=== PATIENT | female | born 1950 | race Caucasian/White ===

== ENCOUNTER → 2017-10-09 16:49 | Outpatient (CLI) | payer MEDICARE | END | disposition home or self-care (01) | LOC: D.MAMMO 14:30 | DX: N63.11 Unspecified lump in the right breast, upper outer quadrant (principal) ==

== ENCOUNTER → 2017-11-13 09:07 | Outpatient (CLI) | payer MEDICARE, OTHER ==
[~2017-11-13 09:07] MED LIST: HYDROCODONE-APA1 TAB PO
[2017-12-17 07:28] VITALS: BMI 33.1
== END | disposition home or self-care (01) ==
LOC: D.US 09:07
DX: N63.11 Unspecified lump in the right breast, upper outer quadrant (principal)

== ENCOUNTER 2017-11-28 06:10 | Day surgery (SDC) | payer MEDICARE, OTHER ==
[2017-11-28] VITALS (8 sets, daily range): BP systolic 104–152; BP diastolic 38–69; Ht 154.9 cm; Wt 79.5 kg
[~2017-11-28] VITALS: Ht 154.9 cm; Wt 79.5 kg
--- NOTE | ~2017-11-28 | OP ---
PATIENT NAME: RAFAEL MEDRANO MEDICAL RECORD: [id number] :50 LOCATION:[facility] ADMISSION DATE: SURGEON: CARLOS DOWNING MD DATE OF OPERATION: 11/28/2017 PREOPERATIVE DIAGNOSIS: Right breast invasive ductal carcinoma. POSTOPERATIVE DIAGNOSIS: Right breast invasive ductal carcinoma. PROCEDURE: Right simple mastectomy with sentinel lymph node biopsy. SURGEON: Carlos Downing MD BARREL RACER: Paula Franz APRN REPORT OF OPERATION: Preoperatively, the patient underwent lymphoscintigraphy. The patient was brought to the operating room and the right breast was prepped and draped in sterile fashion. An ovoid incision was made around the patient's nipple areolar complex including the palpable mass in the right lateral breast. Electrocautery was used to dissect through the subcutaneous tissues. We eventually made superior and inferior flaps underneath the skin of the breast tissue and this was continued superiorly up to the clavicle and inferiorly down to the rectus muscles. We continued this medially towards the sternum and laterally towards the axilla. Once we had the breast completely excised from the surrounding tissues, then it was elevated off of the patient's pectoral fascia. Once the breast was freed, then it was marked and sent for permanent specimen. We inspected the patient's axilla and lateral breast tissue and found 2 sentinel lymph nodes. The highest reading was 1400 and the reading of the other lymph node was 250. The 2 sentinel lymph nodes were sent off for permanent specimen. We inspected the remainder of the axilla and saw no other signs of any increased radiotracer frequency. The wound was then irrigated out with sterile water. Any bleeding sources that were found were treated with either clamp and tie technique with 3-0 silks or they were treated with electrocautery. A 10 flat J-P drains were inserted through the patient's right axilla and placed in the subcutaneous space. The subcutaneous tissues were reapproximated with multiple interrupted 3-0 Vicryl and the skin was closed with dolly. The drains were sutured into place with 3-0 nylons. COMPLICATIONS: None. CONDITION: Stable. ANESTHESIA: General endotracheal. BLOOD LOSS: 100 mL. TRANSINT:[id number] Voice Confirmation ID: [id number] DOCUMENT ID: [id number] OPERATIVE REPORT [id number] MARCELARAFAEL CARLOS DOWNING MD at 1228 CC: [id number] DICTATION DATE: 11/28/17 1307 [employer] HEAD: 11/28/17 1323 [facility] [place] 11/29/17 [place] [id number] [facility] [address]
[2017-11-28 06:25] LABS: BASOPHILS 1.1 % (0-2); EOSINOPHILS 2.3 % (0-7); HEMATOCRIT 45.1 % (36.0-48.0); HEMOGLOBIN 14.9 g/dL (12-16); LYMPHOCYTES 47.9 % (15-50); MCH 29.3 pg (26.0-34.0); MCV 88.6 fL (80.0-100.0); MEAN PLATELET VOLUME 9.7 fL (7.4-10.4); NEUTROPHILS 40.7 % (40-80); PLATELET COUNT 233 10x3/uL (130-400); RBC 5.09 10x6/uL (4.00-5.40); WBC 6.5 10x3/uL (4.8-10.8)
[2017-11-28 06:40] LABS: INR 0.97 (0.85-1.17); PROTIME 12.5 SECONDS (11.6-15.0)
[2017-11-28 06:41] LABS: ANION GAP 11.8 mmol/L (8-16); CALCIUM 9.7 mg/dL (8.5-10.1); CARBON DIOXIDE 30.6 mmol/L (21.0-32.0); POTASSIUM - SERUM 4.4 mmol/L (3.5-5.1)
[2017-11-29 01:20] VITALS: BP 100/41
[2017-11-29 04:56] LABS: BASOPHILS 0.1 % (0-2); EOSINOPHILS 0.3 % (0-7); HEMATOCRIT 37.2 % (36.0-48.0); IMMATURE GRANULOCYTES 0.2 % (0-5); LYMPHOCYTES 28.7 % (15-50); MCH 28.7 pg (26.0-34.0); MCV 89.6 fL (80.0-100.0); MEAN PLATELET VOLUME 9.3 fL (7.4-10.4); MONOCYTES 7.6 % (2-11); NEUTROPHILS 63.1 % (40-80); PLATELET COUNT 220 10x3/uL (130-400); RBC 4.15 10x6/uL (4.00-5.40); RDW 14.4 % (11.5-14.5)
[2017-11-29 05:05] LABS: HEMOGLOBIN 11.9 g/dL (12-16)
[2017-11-29 05:20] LABS: CALC OSMOLALITY 283 mosm/kg (275-300); CALCIUM 8.3 mg/dL (8.5-10.1); CARBON DIOXIDE 30.2 mmol/L (21.0-32.0); CHLORIDE - SERUM 106 mmol/L (98-107); CREATININE - SERUM 0.8 mg/dL (0.6-1.3); GLUCOSE 95 mg/dL (74-106); POTASSIUM - SERUM 4.2 mmol/L (3.5-5.1); SODIUM 142 mmol/L (136-145); UREA NITROGEN 15 mg/dL (7-18); eGFR NON AFRICAN AMERICAN 76 mL/min (90-120)
[2017-11-29 05:27] VITALS: BP 108/47
[2017-11-29 08:58] VITALS: BP 103/46
[2017-11-29] MEDS ORDERED: HYDROCODONE-APA1 TAB PO (09:38)
== END 2017-11-29 11:01 | disposition home or self-care (01) ==
LOC: D.OPS 06:10 → D.MS 06:10 → D.OPS 07:30 → D.PAN 07:30 → D.NM 07:30 → D.OPS 13:56 → D.MS 14:04 → D.OPS 11-29 11:01
PROVIDERS: Anesthesiology; Surgery
DX: C50.911 Malignant neoplasm of unspecified site of right female breast (principal); Z01.812 Encounter for preprocedural laboratory examination

== ENCOUNTER 2017-12-17 06:33 | Day surgery (SDC) | payer MEDICARE, OTHER ==
[~2017-12-17] VITALS: Ht 154.9 cm; Wt 79.4 kg
--- NOTE | ~2017-12-17 | OP ---
PATIENT NAME: RAFAEL MEDRANO MEDICAL RECORD: [id number] :50 LOCATION:[facility] ADMISSION DATE: SURGEON: FABIOLA DOWNING MD DATE OF OPERATION: 12/17/2017 PREOPERATIVE DIAGNOSIS: Right breast invasive ductal carcinoma. POSTOPERATIVE DIAGNOSIS: Right breast invasive ductal carcinoma. PROCEDURES: 1. Left subclavian vein PowerPort placement. 2. Fluoroscopic interpretation. SURGOEN: Fabiola Downing MD REPORT OF PROCEDURE: The patient's left chest was prepped and draped in sterile fashion. A needle was used to cannulate the left subclavian vein and the guidewire was advanced with ease. Fluoro was used to note that the wire was in good position in the venous system. A skin incision was made on the left superior lateral chest and a subcutaneous pouch was made over the pectoral fascia. The catheter was tunneled between this pouch and the wire exit site. The port was then sutured to the pectoral fascia using interrupted 2-0 Prolenes times 2. The catheter was cut with a beveled tip at 25 cm. The dilator trocar device placed over the wire and the wire and dilator were removed. The catheter tip was advanced through the trocar and the trocar was removed. Fluoro was used to note that the catheter tip rested in good position in the superior vena cava. The catheter aspirated nonpulsatile dark blood and flushed easily with heparinized saline. The subcutaneous tissues were reapproximated with interrupted 3-0 Vicryl and the skin was closed with subcutaneous 5-0 Monocryl. COMPLICATIONS: None. CONDITION: Stable. ANESTHESIA: General endotracheal. BLOOD LOSS: Minimal. TRANSINT:[id number] Voice Confirmation ID: [id number] DOCUMENT ID: [id number] FABIOLA DOWNING MD at 1418 CC: [id number] DICTATION DATE: 12/17/17 0947 [facility] CHIEF: 12/17/17 1050 [facility] 12/17/[address] [id number]
[2017-12-17 06:57] LABS: BASOPHILS 0.4 % (0-2); EOSINOPHILS 3.8 % (0-7); HEMATOCRIT 41.5 % (36.0-48.0); HEMOGLOBIN 13.3 g/dL (12-16); IMMATURE GRANULOCYTES 0.2 % (0-5); LYMPHOCYTES 39.5 % (15-50); MCV 90.4 fL (80.0-100.0); MEAN PLATELET VOLUME 9.5 fL (7.4-10.4); MONOCYTES 8.2 % (2-11); NEUTROPHILS 47.9 % (40-80); PLATELET COUNT 256 10x3/uL (130-400); RBC 4.59 10x6/uL (4.00-5.40); RDW 14.3 % (11.5-14.5); WBC 5.5 10x3/uL (4.8-10.8)
[2017-12-17 07:08] LABS: APTT 25.8 SECONDS (22.8-39.4); INR 1.01 (0.85-1.17); PROTIME 12.9 SECONDS (11.6-15.0)
[2017-12-17 07:28] VITALS: BP 134/51; Ht 154.9 cm; Wt 79.4 kg
[2017-12-17] MEDS ORDERED: HYDROCODONE-APA1 TAB PO (09:49)
== END 2017-12-17 13:00 | disposition home or self-care (01) ==
LOC: D.OPS 06:33 → D.PAN 09:00 → D.OPS 09:45
PROVIDERS: Anesthesiology
DX: C50.911 Malignant neoplasm of unspecified site of right female breast (principal); Z01.812 Encounter for preprocedural laboratory examination

== ENCOUNTER → 2018-07-03 09:13 | Outpatient (CLI) | payer MEDICARE, OTHER ==
[2017-12-17 07:28] VITALS: BMI 33.1
== END | disposition home or self-care (01) ==
LOC: D.US 09:13
DX: N63.11 Unspecified lump in the right breast, upper outer quadrant (principal)

== ENCOUNTER 2019-01-30 09:00 | Outpatient (CLI) | payer MEDICARE, OTHER ==
[2017-12-17 07:28] VITALS: BMI 33.1
== END 2019-01-30 10:00 | disposition home or self-care (01) ==
LOC: D.MAMMO 09:00
PROVIDERS: ATTEND Surgery
DX: Z85.3 Personal history of malignant neoplasm of breast (principal)